=== PATIENT | female | born 1985 | race Caucasian/White ===

== ENCOUNTER 2017-03-23 17:42 | Emergency (ER) | payer MEDICAID ==
[~2017-03-23] VITALS: Ht 167.6 cm; Wt 99.6 kg
[2017-03-23 17:54] VITALS: BP 134/88
[2017-03-23] MEDS ORDERED: KETOROLAC 30 MG/1 ML ONE (18:15)
[2017-03-23] MEDS ORDERED: METHOCARBAMOL 750 MG TABLET ONE (18:15)
[2017-03-23] MEDS ORDERED: KETOROLAC 30 MG/1 ML IM ONE (18:30)
[2017-03-23] MEDS ORDERED: METHOCARBAMOL 750 MG TABLET PO ONE (18:30)
== END 2017-03-23 18:54 | disposition home or self-care (01) ==
LOC: ED 18:30
DX: M54.42 Lumbago with sciatica, left side (principal); M54.9 Dorsalgia, unspecified; G89.29 Other chronic pain
CPT/HCPCS: 72110; 73502; 96372; 99284; J1885

== ENCOUNTER 2017-06-24 08:41 | Emergency (ER) | payer MEDICAID ==
[~2017-06-24] VITALS: Ht 167.6 cm; Wt 99.3 kg
[2017-06-24 08:48] VITALS: BP 115/76
== END 2017-06-24 09:35 | disposition home or self-care (01) ==
LOC: ED 09:06
DX: K02.9 Dental caries, unspecified (principal)
CPT/HCPCS: 99283

== ENCOUNTER 2017-06-25 08:12 | Emergency (ER) | payer MEDICAID ==
[~2017-06-25] VITALS: Ht 167.6 cm; Wt 100.9 kg
[2017-06-25] MEDS ORDERED: HYDROmorphone 1 MG/ML, 1ML IV ONE (08:30)
[2017-06-25] MEDS ORDERED: HYDROmorphone 1 MG/ML, 1ML ONE (09:05)
[2017-06-25 09:06] LABS: HEMATOCRIT 37.9 % (34.6-47.8); HEMOGLOBIN 13.1 g/dL (11.7-16.4); WHITE BLOOD COUNT 8.9 x10^3/uL (3.4-10)
[2017-06-25 09:28] LABS: HCG UR OBC PASS
[2017-06-25] MEDS ORDERED: HYDROmorphone 1 MG/ML, 1ML IM ONE (09:30)
[2017-06-25] MEDS ORDERED: KETOROLAC 30 MG/1 ML ONE (09:46)
[2017-06-25 09:52] VITALS: BP 112/73
[2017-06-25] MEDS ORDERED: KETOROLAC 30 MG/1 ML IM ONE (10:00)
[2017-06-25] MEDS ORDERED: OXYcodone/APAP 10/325MG TABLET PO ONE (10:30)
== END 2017-06-25 10:29 | disposition home or self-care (01) ==
LOC: ED 08:35
DX: K08.89 Other specified disorders of teeth and supporting structures (principal)
CPT/HCPCS: 36415; 70486; 81025; 85025; 96372; 99285; J1170; J1885